=== PATIENT | male | born 1955 | race Native Hawaiian/Other Pacific Islander ===

== ENCOUNTER 2017-03-20 14:28 | Outpatient (CLI) | payer OTHER ==
[2017-03-20 15:21] LABS: POTASSIUM 4.1 mmol/L (3.6-5.2)
[2017-03-20 15:41] LABS: PLATELET COUNT 351 K/uL (142-355)
== END 2017-03-20 20:01 | disposition home or self-care (01) ==
LOC: LABW 14:28
PROVIDERS: Surgery Vascular Surgery
DX: Z01.810 Encounter for preprocedural cardiovascular examination (principal); I65.21 Occlusion and stenosis of right carotid artery; Z01.811 Encounter for preprocedural respiratory examination; Z01.812 Encounter for preprocedural laboratory examination
CPT/HCPCS: 36415; 80048; 85027; 93005

== ENCOUNTER 2019-06-22 16:06 | Emergency (ER) | payer OTHER ==
[~2019-06-22] VITALS: Ht 170.2 cm; Wt 73.5 kg
[2019-06-22] MEDS ORDERED: METO50TA27 PO (16:24)
[2019-06-22] MEDS ORDERED: AMLODIPINE BESYLATE PO (16:24)
[2019-06-22] MEDS ORDERED: ASPIRIN 81 LOW81 MG PO (16:25)
[2019-06-22] MEDS ORDERED: CLOP75TA2 PO (16:25)
[2019-06-22] MEDS ORDERED: LIPITOR20 MG PO (16:25)
[2019-06-22] MEDS ORDERED: OMEP20CA PO (16:26)
[2019-06-22] MEDS ORDERED: LEVO0.1519 PO (16:26)
[2019-06-22] MEDS ORDERED: HYDR10TA47A PO (16:27)
[2019-06-22 16:50] VITALS: BP 158/83; TEMP 98.7
== END 2019-06-22 16:55 | disposition home or self-care (01) ==
LOC: ED 16:06
DX: T22.112A Burn of first degree of left forearm, initial encounter (principal); T31.0 Burns involving less than 10% of body surface; X11.8XXA Contact with other hot tap-water, initial encounter; Y92.89 Other specified places as the place of occurrence of the external cause
CPT/HCPCS: 96372; 99283; J1885